=== PATIENT | female | born 1950 | race Hispanic/Latino ===

== ENCOUNTER 2018-03-21 05:18 | Observation (INO) | payer MEDICARE, OTHER ==
[2018-03-11 10:49] LABS: BASOPHILS # (AUTO) 0.1 (0.0-0.1); BASOPHILS % 0.5 % (0.0-1.0); EOSINOPHILS # (AUTO) 0.5 (0.0-0.4); HEMOGLOBIN 15.3 g/dL (12.0-16.0); LYMPHOCYTES # (AUTO) 3.1 (1.0-3.2); LYMPHOCYTES % 31.4 % (18.0-39.1); MEAN CORPUSCULAR HEMOGLOBIN 32.6 pg (28-32); MEAN CORPUSCULAR HGB CONC 32.6 g/dL (31-35); MONOCYTES # (AUTO) 0.6 (0.2-0.8); MONOCYTES % 6.4 % (4.4-11.3); NEUTROPHILS # (AUTO) 5.4 (2.1-6.9); NEUTROPHILS % 56.1 % (38.7-80.0); PLATELET COUNT 245 x10e3/uL (140-360); RED CELL DISTRIBUTION WIDTH 13.3 % (11.7-14.4)
[2018-03-11 11:34] LABS: ANION GAP 17.2 mmol/L (8-16); CALCIUM 9.3 mg/dL (8.4-10.2); POTASSIUM 4.2 mmol/L (3.5-5.1)
--- NOTE | 2018-03-11 11:45 | Diagnostic Imaging Report ---
EXAMINATION: PA and lateral views of the chest. COMPARISON: None CLINICAL HISTORY: Preop for hernia repair DISCUSSION: Lines/tubes: None. Lungs: The lungs are well inflated and clear. There is no evidence of pneumonia or pulmonary edema. Pleura: There is no pleural effusion or pneumothorax. Heart and mediastinum: Cardiomediastinal silhouette is unremarkable. Pulmonary vasculature is normal. Bones and soft tissues: No acute bony abnormalities. Degenerative changes in the thoracic spine IMPRESSION: No acute cardiopulmonary abnormalities. Signed by: Dr. Noe Beauchamp M.D. on 03/11/2018 11:42 AM
[~2018-03-21] VITALS: Ht 165.1 cm; Wt 123.8 kg
[~2018-03-21 05:18] MED LIST: ALEVE PO; GLIPIZIDE PO; JARDIANCE PO; LEVOTHYROXINE50 MCG PO; METFORMIN HCL1000 MG; TYLENOL PO; VITAMIN D PO
--- OUTSIDE RECORDS SUMMARY | 2018-03-21 05:19 | XMS REPORT ---
Author Author [facility] Address Unknown Phone Unavailable Care Team Providers Care Trauma Counsellor Name Role Phone Stevan CANO Unavailable Unavailable Problems This patient has no known problems. Allergies, Adverse Reactions, Alerts This patient has no known allergies or adverse reactions. Medications This patient has no known medications. Results Test Description Test Time Test Comments Text Results Atomic Results Result Comments CHEST 2 VIEWS 2018-03-11 11:41:00 [place] [address] Patient Name: SANCHEZ KELLEY MR #: [id number] : 1950 Age/Sex: 67/F Req #: [id number] Adm Physician: Ordered by: KATERYNA CANO MD Report #: [id number] Location: OR Room/Bed: Procedure: [id number] DX/CHEST 2 VIEWS Exam Date: Exam Time: REPORT STATUS: Signed EXAMINATION: PA and lateral views of the chest. COMPARISON: None CLINICAL HISTORY: Preop for hernia repair DISCUSSION: Lines/tubes: None. Lungs: The lungs are well inflated and clear. There is no evidence of pneumonia or pulmonary edema. Pleura: There is no pleural effusion or pneumothorax. Heart and mediastinum: Cardiomediastinal silhouette is unremarkable. Pulmonary vasculature is normal. Bones and soft tissues: No acute bony abnormalities. Degenerative changes in the thoracic spine IMPRESSION: No acute cardiopulmonary abnormalities. Signed by: Dr. Deniz Beauchamp M.D. on 03/11/2018 11:42 AM Dictated By: DENIZ BEAUCHAMP MD 1142 Transcribed By: VIOLA on 03/11/18 1142 COPY TO: KATERYNA CANO MD
--- OUTSIDE RECORDS SUMMARY | 2018-03-21 05:19 | XMS REPORT | Continuity of Care Document ---
Author Author [facility] Interface Address Unknown Phone Unavailable Problems Problem Status Onset Date Classification Date Reported Comments Source R31.0 - GROSS HEMATURIA Active 10/19/2017 [facility] [place] E66.01 Active 03/21/2015 [facility] Medications Medication Details Route Status Patient Instructions Ordering Provider Order Date Source Allergies, Adverse Reactions, Alerts Substance Category Reaction Severity Reaction type Status Date Reported Comments Source Immunizations Immunization Date Given Site Status Last Updated Comments Source Results Order Name Results Value Reference Range Date Interpretation Comments Source Bone Density DXA [employer] MA Bone Density DXA [employer] MA BONE DENSITY ASSESSMENT: 11/05/2017 CLINICAL DATA: Post menopausal and clinical risk for osteoporosis. 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 The BMD average for the exam is 1.037 g/cm2. The T-score is 1.70 and the Z-score is 2.80. This matches the World Health Organization's criteria for normal bone density and places the patient within normal limits of fracture risk. An additional bone density evaluation was performed 11/05/2017 on the left femur neck using a Hologic unit. The BMD average for the exam is 0.992 g/cm2. The T- score is 1.30 and the Z-score is 2.40. This matches the World Health Organization's criteria for normal bone density and places the patient within normal limits of fracture risk. An additional bone density evaluation was performed 11/05/2017 on the right hip using a Hologic unit. The BMD average for the exam is 1.020 g/cm2. The T-score is 0.60 and the Z-score is 1.50. This matches the World Health Organization's criteria for normal bone density and places the patient within normal limits of fracture risk. An additional bone density evaluation was performed 11/05/2017 on the left hip using a Hologic unit. The BMD average for the exam is 1.147 g/cm2. The T-score is 1.70 and the Z-score is 2.50. This matches the World Health Organization's criteria for normal bone density and places the patient within normal limits of fracture risk. An additional bone density evaluation was performed 11/05/2017 on the AP L1-L2 region of spine using a Hologic unit. The BMD average for the exam is 1.316 g/cm2. The T-score is 3.10 and the Z-score is 4.70. This matches the World Health Organization's criteria for normal bone density and places the patient within normal limits of fracture risk. IMPRESSION: BONE DENSITY WITHIN NORMAL LIMITS Patient is at normal risk for fracture. Patient consult w/primary care provider is recommended. This exam was interpreted at [id number] for CAYETANO Anthony 15. Priyanka Acosta M.D. ms/penrad:11/05/2017 14:27:49 Staff Accountant(s): Janette CHA)(Timo), [facility] 11/05/2017 - - Read by: Priyanka Acosta MD Dictated Date/time: 11/05/17 14:27 Electronically Signed by: Priyanka Acosta MD 11/05/17 14:27 FINAL REPORT RAJENDRA Manning Breast Mammo Scrn NOEL incl CAD MA Breast Mammo Scrn NOEL incl CAD MA BILATERAL DIGITAL SCREENING MAMMOGRAM WITH CAD: 11/05/2017 CLINICAL: Z12.31 Encounter For Screening Mammogram For Malignant Neoplasm Of Breast/Z12.31 Encounter For Screening Mammogram For Malignant Neoplasm Of Breast. Current study was evaluated with a Computer Aided Detection (CAD) system. COMPARISON:No prior exams were available for comparison. TECHNIQUE: Mammographic views were obtained using digital acquisition. Current study was also evaluated with a Computer Aided Detection (CAD) system. FINDINGS: The tissue of both breasts is almost entirely fat. No significant masses, calcifications, or other findings are seen in either breast. IMPRESSION: NEGATIVE RECOMMENDATION:There is no mammographic evidence of malignancy. A 1 year screening mammogram is recommended.(11/06/2018) This exam was interpreted at [id number] at [facility]. Professional services are provided by the [facility]. Dr. Jazzy Marmolejo D.O. ht/penrad:11/05/2017 10:11:50 Staff Accountant(s): Cierra Santacruz RT(R)(M), [facility] Marcus Manning letter sent: BI-RADS 1/2 Mammogram BI-RADS: 1 Negative 11/05/2017 - - Read by: Jazzy Marmolejo DO Dictated Date/time: 11/05/17 10:11 Electronically Signed by: Jazzy Marmolejo DO 11/05/17 10:11 FINAL REPORT RAJENDRA [place] Retroperitoneal Complete US Retroperitoneal Complete US Exam: RETROPERITONEAL ULTRASOUND. Reason for Exam: - R31.0 Gross hematuria Comparison Exam: None Discussion: Multiplanar grayscale and color Doppler ultrasound of the kidneys, aorta, IVC, and urinary bladder. Right kidney: Size: 9.6 cm. Cortical thickness measures 1.1 cm. Hydronephrosis: Mild. Echogenicity: Unremarkable Calculi/Cysts/Masses: None. Ureter: The proximal ureter is mildly prominent measuring 9 mm. Left kidney: Size: 12.9 cm. Cortical thickness measures 1.7 cm. Hydronephrosis: None. Echogenicity: Unremarkable Calculi/Cysts/Masses: None. Ureter: none visualized Abdominal aorta/Iliac arteries: Visualized portions are unremarkable. Inferior vena cava: Visualized portions are unremarkable Bladder: Unremarkable. IMPRESSION: 1. Mild right hydroureteronephrosis. Consider renal stone CT to evaluate for a distal ureteral stone. 2017 - - Read by: Blayne Harris MD Dictated Date/time: 10/21/17 09:54 Electronically Signed by: Blayne Harris MD 10/21/17 09:57 FINAL REPORT EUSEBIO SVENDori Hans Vital Signs Vital Sign Value Date Comments Source Encounters Location Location Details Encounter Type Encounter Number Reason For Visit Attending Provider ADM Date DC Date Status Source Outpatient [id number] WALDEMAR RODAS 04/03/2015 Active [facility] Procedures Procedure Code Date Perfomer Comments Source
--- NOTE | 2018-03-21 07:10 | NUR ---
SPIRITUAL CARE - Pre-Surgery Assessment: Pt in bed. Pt's at bedside. Intervention: I provided pastoral presence, hospitality. Outcome: Pt expressed appreciation for visit. No need for follow up indicated at this time. OFELIA BLACK Skidder Driver Spiritual Care Department O: [phone] Pager: [phone] ([phone] number calling from)
[2018-03-21] MEDS ORDERED: INSULIN REGULAR, HUMAN 100 UNIT/1 ML 3ML VIAL ONE (07:40)
[2018-03-21] MEDS ORDERED: BUPIVACAINE 0.25%/EPI 30ML SDV INJ ONE (08:20)
[2018-03-21] MEDS ORDERED: HYDROMORPHONE 2MG/ML 2 MG/ML ML ONE (09:26)
[2018-03-21] MEDS ORDERED: NALOXONE HCL INJ 0.4 MG/ML AMP IV PRN (12:00)
[2018-03-21] MEDS ORDERED: ACETAMINOPHEN 1000 MG/100 ML IV PRN (12:00)
[2018-03-21] MEDS ORDERED: HYDROMORPHONE 0.2MG/ML-SOD CHL 30ML PCA SYRINGE IV PRN (12:00)
[2018-03-21] MEDS: SODIUM CHLORIDE 0.9% 250ML IRRIG IR SCH ×4 (12:00→23:51)
[2018-03-21] MEDS ORDERED: ONDANSETRON HCL INJ 2MG/ML 2ML 2 MG/ML VIAL IV PRN (12:00)
[2018-03-21] MEDS ORDERED: ONDANSETRON HCL INJ 2MG/ML 2ML 2 MG/ML VIAL ONE (12:33)
--- NOTE | 2018-03-21 12:55 | Operative Report ---
DATE OF PROCEDURE: NO DICTATION, LENGTH 9 SECONDS. Job#: [id number] MH
--- NOTE | 2018-03-21 12:56 | Operative Report ---
DATE OF PROCEDURE: March 21, 2018 PREOPERATIVE DIAGNOSIS: Multiple recurrent and multiple ventral hernias. POSTOPERATIVE DIAGNOSIS: Multiple recurrent and multiple ventral hernias. OPERATION PERFORMED: Exploratory laparotomy, extensive lysis of adhesions and repair of multiple recurrent ventral hernias with mesh. ANESTHESIA: General. COMPLICATIONS: None. ESTIMATED BLOOD LOSS: 100 mL. DESCRIPTION OF PROCEDURE: With the patient lying in bed in the supine position, under good general endotracheal anesthesia, the abdomen was prepped with Betadine solution and draped in the usual manner. A midline incision was then made to encompass the umbilicus in an elliptical fashion and immediately below the skin. A large hernia sac was encountered. The umbilicus and skin was then from the hernia sac and umbilicus was sent for pathological examination. There were several defects in the midline with multiple lobulations, all of which included bowel. The fascia was then dissected all the way around the area in all directions. After this was done, the hernia sac was opened and the multiple loculations of the hernia were encountered. The bowel was tightly adherent to the hernia sac which was slowly and carefully and all the bowel was then freed up from the excess hernia sac. Multiple intraabdominal sutures that were found were removed and all of the excess of the hernia sac was resected. We were then able to run the bowel and all of the adhesions were slowly and carefully taken down until everything was freed up and the intraperitoneal space was cleared. After this was done, a large piece of Physiomesh was then used, 12 x 15, to cover the entire area. This was placed intraabdominally and all 6 corners were then anchored with number 1 Prolene in a transabdominal wall fashion, fixing the mesh to the anterior abdominal wall. This was further reinforced with a tacker, tacking the mesh all the way around. This gave us a satisfactory closure without any tension. The fascial defect at the midline was then closed in a transverse fashion using interrupted sutures of 0 Ethibond and a running number 1 Vicryl. Once this was done, the whole area was then thoroughly irrigated. Perfect hemostasis was ascertained. Two 10-flat Ethan-Vee drains were then left in the subcutaneous tissue and brought out through separate stab wound incisions. The subcutaneous tissue was then approximated using interrupted sutures of 2-0 Vicryl and the skin was closed with clips. Dressings were applied. The sponge, lap, and needle count was correct. The patient tolerated the procedures well and returned to the recovery room in stable condition. Job#: [id number] TA
[2018-03-21] MEDS ORDERED: PANTOPRAZOLE 40 MG 10ML VIAL ONE (13:18)
[2018-03-21] MEDS ORDERED: HYDROMORPHONE 0.2MG/ML-SOD CHL 30ML PCA SYRINGE IV ONE (13:18)
[2018-03-21] MEDS ORDERED: METOCLOPRAMIDE HCL 10 MG/2ML VIAL ONE (13:57)
[2018-03-21 14:38] VITALS: BP 140/63
[2018-03-21 14:42] VITALS: BP 140/63
--- NOTE | 2018-03-21 15:00 | NUR ---
PT RECEIVED FROM PACU TO ROOM 176, LETHARGIC, ORIENTED X3. NO C/O AT PRESENT. ADM ASSESSMENT COMPLETE, VSS. LEFT AND RIGHT JAIDEN DRAIN WITH MINIMAL BLOODY DRAINAGE NOTED. DRESSING AND ABD BINDER IN PLACE. KUMAR TO BEDSIDE DRAINAGE, CLEAR URINE. ORIENTED TO ROOM AND CALL SYSTEM.
[2018-03-21] MEDS: PANTOPRAZOLE 40 MG 10ML VIAL IV SCH (15:02)
[2018-03-21] MEDS: INSULIN REGULAR, HUMAN 100 UNIT/1 ML 3ML VIAL SQ SCH ×2 (15:04→18:00)
[2018-03-21 16:30] VITALS: BP 114/56
[2018-03-21] MEDS: SODIUM CHLORIDE 0.9% 1000ML 1,000 ML IV SCH ×2 (16:37→21:01)
[2018-03-21] MEDS ORDERED: FENTANYL CITRATE/PF 100MCG/2 ML INJ ONE (17:14)
[2018-03-21] MEDS ORDERED: MIDAZOLAM HCL 2 MG/2 ML VIAL ONE (17:14)
[2018-03-21] MEDS: CEFAZOLIN SOD 1 GM/D5W 50ML 50 ML IV SCH (18:21)
[2018-03-21 20:07] VITALS: BP 121/59
[2018-03-21 20:38] VITALS: BP 121/59
[2018-03-21 23:26] VITALS: BP 121/59
[2018-03-22] VITALS (8 sets, daily range): BP systolic 103–181; BP diastolic 52–77
[2018-03-22] MEDS: CEFAZOLIN SOD 1 GM/D5W 50ML 50 ML IV SCH (00:29)
[2018-03-22] MEDS: INSULIN REGULAR, HUMAN 100 UNIT/1 ML 3ML VIAL SQ SCH ×4 (00:30→18:45)
[2018-03-22] MEDS: SODIUM CHLORIDE 0.9% 1000ML 1,000 ML IV SCH ×2 (05:31→16:33)
[2018-03-22 05:32] LABS: BASOPHILS % 0.3 % (0.0-1.0); EOSINOPHILS # (AUTO) 0.4 (0.0-0.4); EOSINOPHILS % 2.9 % (0.0-6.0); HEMATOCRIT 39.6 % (34.2-44.1); HEMOGLOBIN 12.8 g/dL (12.0-16.0); LYMPHOCYTES # (AUTO) 1.8 (1.0-3.2); LYMPHOCYTES % 12.9 % (18.0-39.1); MEAN CORPUSCULAR HEMOGLOBIN 31.7 pg (28-32); MEAN CORPUSCULAR HGB CONC 32.3 g/dL (31-35); MONOCYTES # (AUTO) 1.1 (0.2-0.8); MONOCYTES % 7.5 % (4.4-11.3); NEUTROPHILS # (AUTO) 10.6 (2.1-6.9); NEUTROPHILS % 75.8 % (38.7-80.0); PLATELET COUNT 254 x10e3/uL (140-360); RED BLOOD COUNT 4.04 x10e6/uL (3.6-5.1); RED CELL DISTRIBUTION WIDTH 13.9 % (11.7-14.4)
[2018-03-22 06:07] LABS: ANION GAP 12.9 mmol/L (8-16); BLOOD UREA NITROGEN 19 mg/dL (7-26); BUN/CREATININE RATIO 21 (6-25); CALCIUM 7.9 mg/dL (8.4-10.2); CARBON DIOXIDE 22 mmol/L (22-29); CHLORIDE 107 mmol/L (98-107); CREATININE, SERUM 0.89 mg/dL (0.57-1.11); EST GLOMERULAR FILTRATION RATE > 60 ML/MIN (60-); GLUCOSE 192 mg/dL (74-118); POTASSIUM 3.9 mmol/L (3.5-5.1); SODIUM 138 mmol/L (136-145)
[2018-03-22] MEDS: SODIUM CHLORIDE 0.9% 250ML IRRIG IR SCH (07:45)
--- NOTE | 2018-03-22 09:20 | NUR ---
PT RECEIVED LYING IN BED, AA/O X3. REPORTS ABD PAIN 10/10, MEDICATED WITH IV TYLENOL, TOLERATING DILAUDID RE RECORDING MIXER. ASSESSMENT COMPLETE, VSS. LEFT AND RIGHT JAIDEN DRAIN WITH BLOODY DRAINAGE NOTED. DRESSING AND ABD BINDER IN PLACE. KUMAR TO BEDSIDE DRAINAGE, CLOUDY URINE WITH SEDIMENT NOTED.
--- NOTE | 2018-03-22 11:35 | NUR ---
ADRIA EXPLAINED, SIGNED AND ON CHART VIA SUPERVISOR [employer] COPY TO PT GAVE PT MY CARD FOR QUESTIONS/CONCERNS PUT MY NAME AND NUMBER ON PT'S BOARD IN ROOM PT LIVES WITH HER IN A HOUSE IN [place] PT HAS A GLUCOMETER PCP DR ROB PECK NO CONCERNS GOING HOME CM TO FOLLOW
[2018-03-22] MEDS: PANTOPRAZOLE 40 MG 10ML VIAL IV SCH (12:30)
--- NOTE | 2018-03-22 12:59 | NUR ---
PT SITTING ON EDGE OF BED, TOLERATED WELL. REPORTS ABD PAIN 0/10. FAMILY IN ROOM
--- NOTE | 2018-03-22 14:30 | NUR ---
Visit made by the Spiritual Care Department Pastoral Visitor, May Duggan. Pt sleeping soundly and no family present. Pastoral Visitor left a card describing availability of business management professor and instructions on how to contact a business management professor. OFELIA BLACK Side Laster Spiritual Care Department O: [phone] Pager: [phone] ([phone] number calling from)
--- NOTE | 2018-03-22 15:55 | NUR ---
PT AMBULATING IN HALLWAY, TOLERATING WELL
[2018-03-23] VITALS: BP 120/58
[2018-03-23] MEDS: INSULIN REGULAR, HUMAN 100 UNIT/1 ML 3ML VIAL SQ SCH ×4 (00:34→18:00)
--- NOTE | 2018-03-23 06:00 | NUR ---
D/C KUMAR. CATHETER STILL INTACT. DENIES PAIN, NO BLEEDING.
[2018-03-23 08:33] VITALS: BP 154/68
[2018-03-23 08:43] VITALS: BP 154/68
--- NOTE | 2018-03-23 09:57 | NUR ---
PT AMB TO BATHROOM AND VOIDED
[2018-03-23 12:22] VITALS: BP 166/74
[2018-03-23] MEDS: PANTOPRAZOLE 40 MG 10ML VIAL IV SCH (13:12)
[2018-03-23] MEDS: SODIUM CHLORIDE 0.9% 1000ML 1,000 ML IV SCH (13:55)
[2018-03-23 16:59] VITALS: BP 135/69
[2018-03-23] MEDS ORDERED: ACETAMINOPHEN 1000 MG/100 ML IV ONE (17:22)
[2018-03-23] MEDS ORDERED: KETOROLAC TROMETHAMINE 30 MG/ML VIAL ONE (17:22)
[2018-03-23] MEDS ORDERED: ROCURONIUM BROMIDE 10 MG/ML 5ML VIAL ONE (17:22)
[2018-03-23] MEDS ORDERED: LIDOCAINE HCL 2% LOCAL INJ 5 ML SDV VIAL INJ ONE (17:22)
[2018-03-23] MEDS ORDERED: DEXAMETHASONE SOD PHOS INJ 4 MG/ML VIAL ONE (17:22)
[2018-03-23] MEDS ORDERED: ONDANSETRON HCL INJ 2MG/ML 2ML 2 MG/ML VIAL ONE (17:22)
[2018-03-23] MEDS ORDERED: GLYCOPYRROLATE INJ 1MG/ 5 ML SYR ONE (17:22)
[2018-03-23] MEDS ORDERED: NEOSTIGMINE 5 MG/5ML SYR ONE (17:22)
[2018-03-23] MEDS ORDERED: PROPOFOL IV EMULSION 10 MG/ML 20 ML VIAL ONE (17:22)
[2018-03-23] MEDS ORDERED: CEFAZOLIN SOD 1 GM VIAL ONE (17:22)
[2018-03-23] MEDS ORDERED: DESFLURANE 240 ML BTL INH ONE (17:22)
--- NOTE | 2018-03-23 19:21 | NUR ---
recvd dc instructions with pt and , verbalized understanding.
== END 2018-03-23 20:40 | disposition home or self-care (01) ==
LOC: OR 05:18 → PACU V 11:59 → IMCU 14:01
PROVIDERS: ADMIT Surgery; ATTEND Surgery
DX: K43.2 Incisional hernia without obstruction or gangrene (principal); E78.5 Hyperlipidemia, unspecified; K21.9 Gastro-esophageal reflux disease without esophagitis; E11.9 Type 2 diabetes mellitus without complications
CPT/HCPCS: 36415 ×4; 49566; 49568; 71046; 80048 ×2; 82948 ×3; 85025 ×2; 88302; 93005; C1781; C9113 ×3; G0378 ×3; J0131 ×2; J0690 ×3; J1100; J1170; J1885; J2001; J2250; J2405 ×3; J2704; J2765; J3490; J7030 ×3